=== PATIENT | female | born 1950 | race Caucasian/White ===

== ENCOUNTER → 2016-05-28 | Outpatient (CLI) | payer OTHER ==
--- NOTE | 2016-05-29 14:41 | MAM ---
History: Well woman exam. Date of exam: 05/28/2016 Services provided: Bilateral full field digital screening mammography. CAD, the images were reviewed with R2 computer aided detection. FINDINGS: Glandular tissue is scattered nodular contour with increased mammographic density. Comparison with 2013 and 2015 exams. Scattered glandular parenchymal pattern with slight nodularity, increased mammographic density and stable distribution. Increasing regional microcalcifications right breast 12-1 o'clock. No architectural distortion. No mammographic abnormality on the left. IMPRESSION: Incomplete study Recommendation: Additional views right breast with true lateral and spot compression magnification views in the true lateral and craniocaudal projections. Increasing segmental/regional microcalcifications right breast 12-1 o'clock approximately 4 cm from the nipple. BIRAD CATEGORY: 0 INCOMPLETE Electronically signed by: Viri Mckeon MD 05/29/2016 2:38 PM CDT
== END | disposition home or self-care (01) ==
LOC: MAMMO 13:25
PROVIDERS: ATTEND Family Medicine
DX: Z12.31 Encounter for screening mammogram for malignant neoplasm of breast (principal)

== ENCOUNTER → 2016-06-26 | Outpatient (CLI) | payer OTHER ==
--- NOTE | 2016-06-26 15:52 | MAM ---
History: Segmental microcalcifications right breast 12-1 o'clock. DATE OF SERVICE: 06/26/2016 Services provided: Full field digital diagnostic right mammography. FINDINGS: True lateral and spot compression magnification views are correlated with screening mammogram from 05/28/2016 and prior studies dating back to 2012. The patient has had regional microcalcifications. These however are noted to be slightly more numerous and on spot compression magnification are demonstrating a significant amount of variability. The glandular parenchymal distribution remains stable however demonstrates potential distortion focally at 11:00 and 1:00 however glandular morphology is nodular and appears grossly stable since 2011. These are best demonstrated on the craniocaudal projection view. No soft tissue nodule is seen. IMPRESSION: Indeterminate clustered microcalcifications right breast 12-1 o'clock. The microcalcifications extend over approximately 4 cm. Excision or directed needle biopsy is recommended. Recommendation: Stereotactic or surgical needle sampling microcalcifications right breast 12-1. Findings and recommendations were communicated to the patient by the technologist. BIRAD CATEGORY: 4 SUSPICIOUS FINDINGS Electronically signed by: Viri Mckeon MD 06/26/2016 3:51 PM CDT
== END | disposition home or self-care (01) ==
LOC: MAMMO 14:11
PROVIDERS: ATTEND Family Medicine
DX: R92.0 Mammographic microcalcification found on diagnostic imaging of breast (principal)

== ENCOUNTER → 2018-12-03 | Outpatient (CLI) | payer OTHER ==
--- NOTE | 2018-12-04 11:22 | US ---
EXAM DESCRIPTION: Liver: ULTRASOUND. CLINICAL HISTORY: Abnormal results of liver function studies COMPARISON: None. TECHNIQUE: Transabdominal scannin-dimensional and Doppler modes. FINDINGS: Gallbladder: normal size, shape, echogenicity; no intraluminal stones or sludge. No fluid around the gallbladder. No wall thickening. 2 mm. Non-tender with transducer pressure. Common bile duct: caliber 5.7 mm within normal limits. Liver: Heterogeneously increased echogenicity; contour liver capsule smooth where seen. No fluid around the liver. Intrahepatic biliary ducts normal caliber. Doppler hepatopedal flow portal vein. 7 mm. Long axis right lobe 12.1 cm Pancreas: normal size and echogenicity. Duct not seen. Right kidney: long axis measures 10.5 cm. Normal cortical echogenicity. Normal cortical thickness. No hydronephrosis. Aorta proximal: 2.1 cm normal range. IMPRESSION: 1. Heterogeneous steatosis of the liver with no focal lesions. Physiologic vascularity is normal caliber ducts. Smooth capsule no ascites. 2. Other abdominal organs are unremarkable. Nontender with transducer pressure. Normal caliber common bile duct. Stomach was not imaged. Electronically signed by: Clark Fagan MD 12/04/2018 11:20 AM CDT
== END ==
LOC: US 09:00
PROVIDERS: ATTEND Nurse Practitioner Family
DX: R94.5 Abnormal results of liver function studies (principal); K76.0 Fatty (change of) liver, not elsewhere classified